=== PATIENT | female | born 1980 | race Caucasian/White ===

== ENCOUNTER 2018-02-20 05:16 | Inpatient (IN) | payer BC ==
--- NOTE | 2018-02-19 21:48 | PDOC.LDHP ---
Labor and Delivery H&P Chief complaint: scheduled section HPI: Pt is a 37yo @ 39 weeks, declines TOLAC. Current gestational age (weeks): 39 Due date: 02/27/18 Dating criteria: second trimester ultrasound Grav: 2 Para: 1 OB History Details: 2016 1CS for breech and oligohydramnios, complicated by drug use during and limited PNC 2018, negative drug screens and reported sobriety, A1DM, declines YAMILETH Current complications: gestational diabetes (A1) Abnormal US findings: No Past Medical History: depression, controlled off meds now Current medications: pre-peyton vitamins Previous surgical history: low tranverse CS Allergies/Adverse Reactions: Allergies Allergy/AdvReac Type Severity Reaction Status Date / Time No Known Allergies Allergy Verified 02/20/18 05:48 Social history: drug use (history of +meth use in 2015, 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 Desires OnQ pump for pain management.
--- NOTE | 2018-02-19 23:52 | HP ---
SEE H and P in [facility]
[2018-02-20 05:48] VITALS: BMI 31.5
[2018-02-20] MEDS ORDERED: Bicitra 30 ML UDCUP PO SCH (05:50)
[2018-02-20] MEDS ORDERED: Promethazine HCl 25 MG/ML VIAL IM PRN ×3 (05:50→13:55)
[2018-02-20] MEDS ORDERED: Ondansetron HCl/PF 4 MG/2 ML Vial IVP PRN ×5 (05:50→13:55)
[2018-02-20] MEDS ORDERED: CEFAZOLIN/Water 2 GM/20 ML SYRINGE SLOW IVP SCH (05:50)
[2018-02-20] MEDS: Lactated Ringer's 1,000 ML IV SCH ×2 (06:05→06:59)
[2018-02-20 06:23] LABS: Hemoglobin 14.8 g/dL (12.0-16.0); Mean Corpuscular HGB CONC 35.9 g/dL (32.0-36.0); Mean Corpuscular Hemoglobin 33.5 pg (27.0-31.0); Mean Corpuscular Volume 93.3 fL (78.0-98.0); Mean Platelet Volume 7.9 fL (7.4-10.4); Platelet Count 139 thou/uL (130-400); RBC Distribution Width 12.2 % (11.5-14.5); Red Blood Cell (RBC) Count 4.42 mill/uL (4.20-5.40); White Blood Cell (WBC) Count 8.7 thou/uL (4.8-10.8)
[2018-02-20 07:07] LABS: HBSAg Index 0.22 S/CO (0-0.99); Hep B Surf Ag Non-Reactive S/CO (NonReactive); Syphilis Antibody Nonreactive (Nonreactive); Syphilis Antibody Index 0.03 S/CO (<1.00 Non-Reactive)
[2018-02-20] MEDS ORDERED: Morphine PF 1 MG/ML SYR ONE (07:11)
[2018-02-20] MEDS ORDERED: Fentanyl 100 MCG/2 ML VIAL ONE (07:11)
[2018-02-20] MEDS ORDERED: Dexamethasone 4 mg/ml Vial ONE (07:12)
[2018-02-20] MEDS ORDERED: Ketorolac Tromethamine 30 MG/ML VIAL ONE ×2 (07:12→11:59)
[2018-02-20] MEDS ORDERED: Ondansetron HCl/PF 4 MG/2 ML Vial ONE ×2 (07:12→11:59)
[2018-02-20] MEDS ORDERED: PHENYLEPHRINE-NS 100 MCG/ML 10 ML SYRINGE ONE ×2 (07:12→11:59)
[2018-02-20] MEDS ORDERED: Oxytocin 10 UNITS/ML VIAL ONE ×2 (07:12→08:51)
[2018-02-20] MEDS ORDERED: ePHEDrine/0.9% NaCl/PF SYRINGE 50 mg/10 ml ONE ×2 (07:12→11:59)
[2018-02-20] MEDS ORDERED: Bupivacaine 0.75% W/DEXTROSE 8.25% 2 ML AMP ONE (07:13)
[2018-02-20] MEDS ORDERED: Lidocaine 1% PF 5 ML VIAL ONE (07:13)
[2018-02-20] MEDS ORDERED: Ropivacaine 0.2% 550 ML 750 ML NERVE BLCK SCH ×2 (07:45→09:15)
[2018-02-20] MEDS ORDERED: Bupivacaine 0.25% HCL 30 ML VIAL ONE (08:17)
[2018-02-20] MEDS ORDERED: Meperidine HCl/PF 25 MG/ML VIAL SLOW IVP PRN (08:32)
[2018-02-20] MEDS ORDERED: Eucerin (Mineral Oil/Petrolatum,White) 30 gm Jar TOP PRN (08:32)
[2018-02-20] MEDS ORDERED: Naloxone HCl 0.4 mg/ml Vial IVP PRN ×2 (08:32)
[2018-02-20] MEDS ORDERED: Naloxone HCl 0.4 mg/ml Vial IV PRN ×4 (08:32→13:55)
[2018-02-20] MEDS ORDERED: HYDROmorphone 2 MG/ML VIAL SLOW IVP PRN (08:32)
[2018-02-20] MEDS ORDERED: Promethazine HCl 25 MG SUPP PR PRN ×2 (08:32→13:55)
[2018-02-20] MEDS ORDERED: diphenhydrAMINE 50 MG/ML VIAL IVP PRN ×2 (08:32→13:55)
[2018-02-20] MEDS ORDERED: Ketorolac Tromethamine 30 MG/ML VIAL IVP PRN ×2 (08:32→13:55)
--- NOTE | 2018-02-20 08:39 | PDOC.OPDEL ---
OB Operative/Delivery Note Delivery Dr/Surgeon: Kamar Assist: Gilbert Pre-Delivery Diagnosis: scheduled section Procedure/Post Delivery Dx: repeat low transverse CS Weeks gestation: 39 Anesthesia: spinal - Findings A Weight: 6 lb 13 oz - Additional Findings/Plan Placenta delivered: spontaneous findings: low transverse hysterotomy without extension, normal uterus, normal tubes, normal ovaries Estimated blood loss: 750ml Post delivery plan: routine recovery
[2018-02-20] MEDS ORDERED: Communication Order-Pharmacy FS SCH (08:45)
[2018-02-20] MEDS ORDERED: Ketorolac Tromethamine 30 MG/ML VIAL IVP SCH (08:45)
[2018-02-20] MEDS ORDERED: Ropivacaine HCl/PF 750 ML in Premix Bag 1 BAG NERVE BLCK SCH (09:15)
--- NOTE | 2018-02-20 10:43 | OP ---
DATE OF PROCEDURE: 02/20/2018 PREOPERATIVE DIAGNOSES: 1. A 37-year-old G2, P0-1-0-1 at 39 weeks. 2. Previous section. 3. Declined trial of labor after section. POSTOPERATIVE DIAGNOSES: 1. A 37-year-old G2, P0-1-0-1 at 39 weeks. 2. Previous section. 3. Declined trial of labor after section. PROCEDURES PERFORMED: Repeat low transverse section with ON-Q pump placement. SURGEON: Pedro Galvin D.O. PRODUCE WEIGHER: Daniela Hunt M.D. and Mary Lou Falcon M.D. COMPLICATIONS: None. ESTIMATED BLOOD LOSS: 750 mL. FINDINGS: 1. Vigorous female infant, Apgars pending at the time of dictation. Weight 6 pounds and 13 ounces. 2. Low transverse hysterotomy without extension. 3. Placenta delivered intact. Normal appearing with 3-vessel cord. 4. Uterus firm after delivery of placenta. 5. Normal appearing tubes and ovaries bilaterally. 6. Surgical site is hemostatic. PROCEDURE DETAILS: The patient was taken back to the OR with IV fluids running. Once she was in the OR, spinal anesthesia was obtained. Once spinal anesthesia was obtained, the patient was placed in dorsal supine position with left lateral tilt. Oliver catheter was placed using sterile technique. T wo grams of Ancef were administered. The abdomen was prepped and draped in normal fashion for pratima an section. Surgeons were scrubbed in. Anesthesia was tested and was found to be adequate. A Pfann enstiel skin incision was made with the scalpel. This incision was carried down through subcutaneous tissue to the fascia. Once the fascia was reached, it was incised in the midline and extended super ior laterally using scissors. Deyanira clamps were placed at the superior border of the fascia, which was sharply and bluntly dissected off the rectus abdominis muscle. In similar fashion, Deyanira clamps were placed inferiorly to the inferior edge of the fascia, which was dissected away from the rectus muscles down towards the pubic symphysis. Rectus muscles were bluntly in the midline. The peritoneum was bluntly entered and stretched laterally. An Dorian O retractor was placed into the p eritoneal cavity for retraction, visualization and protection of the wound. A bladder flap was creat ed using Metzenbaum scissors and the bladder was dissected away from the planned hysterotomy site. A scalpel was used to create a hysterotomy, which was then bluntly entered and stretched using the Ker r maneuver. An amniotomy was performed with clear fluid noted. Infant was then delivered without di fficulty through the hysterotomy. The nose and mouth were suctioned. The cord was doubly clamped an d cut. The was handed off to special care nurse in attendance. Cord blood was collected. Th e placenta was delivered. Uterus was exteriorized, massaged to firm, and cleared of clot and debris with a clean and dry sponge. The uterus was returned to the abdominal cavity. Ring forceps were germeias lied to the hysterotomy for hemostasis during the uterine closure. Uterus was closed with Monocryl s uture in a running locked fashion. After the hysterotomy was closed, it was inspected with no areas of bleeding noted. The hysterotomy was irrigated as well as the pericolic gutters and suctioned dry. It was inspected again with no bleeding noted. The Dorian O retractor was then removed from the ab dominal cavity. Hysterotomy was inspected one last time. Any remaining irrigation was suctioned. T he peritoneal layer was reapproximated with plain gut suture. Two ON-Q pump catheter tips were direc isidro through the skin, subcutaneous tissue and fascia, that were directed in between the fascia and mu scle layer in the corner of the incision. The catheters were primed with local anesthetic agent and noted to be functioning properly. The fascia was then closed with PDS suture from corner to corner i n a running fashion. Subcutaneous tissue was irrigated and dried. Any small areas of bleeding were controlled with Bovie cauterization. Subcutaneous tissue was reapproximated with plain gut suture. The skin was closed with 4-0 Monocryl and dressed with Dermabond dressing. Uterus was noted to be fi rm at the end of the case and there was no abnormal vaginal bleeding noted. The patient was then donald aned, dried and taken to the recovery room in good condition.
[2018-02-20 11:09] LABS: Amphetamine Not Detected (NotDetected); Barbiturates Screen Not Detected (NotDetected); Benzodiazepine Screen Not Detected (NotDetected); Cocaine Metabolite Screen Not Detected (NotDetected); Medtox Control Line Valid? VALID (VALID); Medtox Reader # READER 1; Methadone Not Detected (NotDetected); Methamphetamine Not Detected (NotDetected); Opiate Screen Not Detected (NotDetected); Oxycodone Screen Not Detected (NotDetected); Phencyclidine (PCP) Not Detected (NotDetected); THC/Cannabinoid Screen Not Detected (NotDetected); Tricyclic Screen Not Detected (NotDetected)
[2018-02-20] MEDS ORDERED: Measles/Mumps/Rubella 10 MCG/0.5 ML VIAL SC ONE (11:49)
[2018-02-20] MEDS ORDERED: NS / Oxytocin 40 units/1000ml 1,000 ML IV SCH (11:49)
[2018-02-20] MEDS ORDERED: Bisacodyl 10 MG SUPP PR PRN (11:49)
[2018-02-20] MEDS ORDERED: Lactated Ringer's 1,000 ML IV SCH (11:49)
[2018-02-20] MEDS ORDERED: Lanolin Ointment 7 GM TUBE TOP PRN (11:49)
[2018-02-20] MEDS ORDERED: Adacel (T-DAP) 0.5 ML VIAL IM ONE (11:49)
[2018-02-20] MEDS ORDERED: Acetaminophen/Codeine 30-300mg Tablet PO PRN (11:49)
[2018-02-20] MEDS ORDERED: Dexamethasone 20 MG/5 ML VIAL ONE (11:59)
[2018-02-20] MEDS: Docusate Calcium (SURFAK) 240 MG CAP PO SCH ×2 (12:30→21:17)
[2018-02-20] MEDS: Ferrous Sulfate 325 MG TAB PO SCH ×2 (12:30→21:17)
[2018-02-20] MEDS: Prenatal Vitamin 1 TAB PO SCH (12:31)
[2018-02-20] MEDS ORDERED: NO PO,IM,IV OR SC NARCOTICS FOR 12HR EXCEPT BY ANESTHESIA PO SCH (13:55)
[2018-02-20] MEDS ORDERED: Hydrocerin (Eucerin) Cream 120 gm Jar TOP PRN (13:55)
[2018-02-20] MEDS: Ibuprofen 800 MG TAB PO SCH ×2 (14:02→21:18)
[2018-02-21 06:17] LABS: Hemoglobin 10.8 g/dL (12.0-16.0); Mean Corpuscular HGB CONC 35.6 g/dL (32.0-36.0); Mean Corpuscular Hemoglobin 33.8 pg (27.0-31.0); Mean Corpuscular Volume 94.9 fL (78.0-98.0); Mean Platelet Volume 7.8 fL (7.4-10.4); Platelet Count 126 thou/uL (130-400); Red Blood Cell (RBC) Count 3.19 mill/uL (4.20-5.40); White Blood Cell (WBC) Count 11.7 thou/uL (4.8-10.8)
--- NOTE | 2018-02-21 06:20 | PDOC.PP ---
Post Progress Note Post Day #: POD#1 Subjective: Resting comfortably. No complaints. PO intake tolerated: yes Flatus: no Ambulation: yes Vital Signs (12 hours) Temp Pulse Resp BP BP 02/20/18 23:55 98.0 F 66 18 94/53 L 02/20/18 22:00 18 02/20/18 19:46 98.6 F 70 18 108/54 L Weight Weight 68.492 kg - Physical Examination General: NAD Respiratory: non-labored breathing Abdominal: no distention Extremities: negative homans (B) Skin: CS incision dry & intact Result Diagrams: 02/21/18 05:15 Additional Labs: Post Labs Blood Type A NEGATIVE 02/20/18 06:15 Hep Bs Antigen Non-Reactive S/CO (NonReactive) 02/20/18 06:15 - Assessment/Plan Doing well. Oliver is out. Clears and advance. Ambulate.
[2018-02-21] MEDS: Ibuprofen 800 MG TAB PO SCH ×3 (06:46→21:47)
[2018-02-21] MEDS: Ferrous Sulfate 325 MG TAB PO SCH ×2 (07:15→22:01)
[2018-02-21] MEDS: Docusate Calcium (SURFAK) 240 MG CAP PO SCH ×2 (08:07→21:47)
[2018-02-21] MEDS: Simethicone Chewable 80 MG TAB PO PRN ×2 (08:07→21:47)
[2018-02-21] MEDS: Prenatal Vitamin 1 TAB PO SCH (08:07)
[2018-02-21] MEDS: Acetaminophen/Codeine 30-300mg Tablet PO PRN ×2 (17:14→23:25)
[2018-02-22] MEDS: Ibuprofen 800 MG TAB PO SCH (05:24)
[2018-02-22] MEDS: Docusate Calcium (SURFAK) 240 MG CAP PO SCH (09:14)
[2018-02-22] MEDS: Prenatal Vitamin 1 TAB PO SCH (09:14)
[2018-02-22] MEDS: Ferrous Sulfate 325 MG TAB PO SCH (09:50)
[2018-02-22] MEDS: Acetaminophen/Codeine 30-300mg Tablet PO PRN (09:52)
--- NOTE | 2018-02-22 09:52 | DIS ---
DATE OF ADMISSION: 02/20/2018 DATE OF DISCHARGE: 02/22/2018 ADMITTING DIAGNOSES: 1. Intrauterine at 39 weeks. 2. Previous x1, desires repeat. DISCHARGE DIAGNOSES: 1. Intrauterine at 39 weeks. 2. Previous x1, desires repeat. PROCEDURE: Repeat lower transverse . HOSPITAL COURSE: Patient is a 37-year-old G2, now P2 female who presented at 39 weeks gestation for a scheduled repeat . For complete details, please refer to the operative note. The patient was subsequently sent to the floor for continued postoperative care. She is now postoper ative day #2, tolerating p.o., voiding on her own, having good pain control and decreased lochia. PHYSICAL EXAMINATION: VITAL SIGNS: On the day of discharge is 107/58, temperature 98.4, pulse of 61, respiratory rate of 2 0. GENERAL: She appears to be in no acute distress. She is alert and oriented, cooperative and pleasan t to interact with. Fundus is firm and nontender. Incision is clean, dry, and intact with some brui sing. EXTREMITIES: Nontender with minimal edema. The patient is being discharged to home. She has been given instructions to follow up with Dr. Galvin her primary OB in 2 weeks for an incision check. She has also been given instructions to seek medic al attention sooner if she experiences fever, increasing pain or bleeding. She has been given instru ctions to not lift any more than 15 pounds for the next 4-6 weeks. No driving for 2 weeks.
[2018-02-22 11:12] VITALS: BP 127/65; TEMP 99.6
== END 2018-02-22 13:15 | disposition home or self-care (01) | DRG 766 ==
LOC: L&D 05:16 → 3SW 11:35
PROVIDERS: ADMIT Obstetrics & Gynecology; ATTEND Obstetrics & Gynecology
PROC: 10D00Z1 Extraction of Products of Conception, Low, Open Approach (ICD-10-PCS; principal; 2018-02-20)
DX: O34.211 Maternal care for low transverse scar from previous cesarean delivery (principal); Z3A.39 39 weeks gestation of pregnancy; Z37.0 Single live birth; O24.429 Gestational diabetes mellitus in childbirth, unspecified control
CPT/HCPCS: 36415; 51702; 80306; 85027; 85461; 86780; 86850; 86900; 86901; 87340; 90384; 96372; A4306; J1100; J1885; J2001; J2274; J2405; J2590; J2795; J3010; J3490; S0020